=== PATIENT | male | born 1935 | race African-American/Black ===

== ENCOUNTER 2018-09-18 14:19 | Inpatient (IN) | payer MEDICARE ==
[~2018-09-18] VITALS: Ht 172.7 cm; Wt 39.9 kg
[2018-09-18] VITALS (10 sets, daily range): BP systolic 96–131; BP diastolic 51–76
[2018-09-18] MEDS ORDERED: ONDANSETRON HCL 4MG/2ML INJ IV STA (14:53)
[2018-09-18] MEDS ORDERED: SODIUM CHLORIDE 0.9% 500 ML IV ONE (14:53)
[2018-09-18] MEDS ORDERED: DEXAMETHASONE 10 MG/ML VIAL IV ONE (15:45)
[2018-09-18] MEDS ORDERED: LEVETIRACETAM 500MG PREMIX 100 ML IV ONE (15:45)
[2018-09-18 16:28] LABS: CHLORIDE 108 mEq/L (98-107)
[2018-09-18 16:29] LABS: BASOPHILS % 0.2 % (0.0-2.0); EOSINOPHILS % 2.5 % (0.0-5.0); HEMATOCRIT. 23.7 % (42.0-52.0); HEMOGLOBIN. 7.6 g/dL (14.0-18.0); INR 1.1; LYMPHOCYTES % 7.2 % (20.0-50.0); MEAN CORPUSCULAR HEMOGLOBIN 28.9 pg (28.0-32.0); MEAN CORPUSCULAR VOLUME 90.5 fL (80.0-94.0); MEAN PLATELET VOLUME 8.6 fl (7.4-10.4); MONOCYTES % 10.8 % (2.0-8.0); NEUTROPHILS % 79.3 % (40.0-76.0); PLATELET 186 x1000/uL (130-400); PROTHROMBIN TIME 10.9 sec (9.1-11.1); RED BLOOD CELL COUNT 2.62 mill/uL (4.7-6.1); RED CELL DISTRIBUTION WIDTH 16.4 % (11.6-14.6)
[2018-09-18 16:39] LABS: CREATINE KINASE 45 IU/L (39-308)
[2018-09-18 16:41] LABS: CARBAMAZEPINE < 0.5 ug/mL (4-12); PHENOBARBITAL < 2.1 ug/mL (15.0-40.0)
[2018-09-18] MEDS ORDERED: PIPERACILLIN/TAZ 3.375G PREMIX 50 ML IV SCH (22:15)
[2018-09-18] MEDS ORDERED: ACETAMINOPHEN 650MG/20.3ML UDC PO PRN (22:15)
[2018-09-18] MEDS ORDERED: HYDROMORPHONE HCL/PF 2MG/ML CPJ IV PRN (22:15)
[2018-09-18] MEDS ORDERED: LEVETIRACETAM 500 MG in SODIUM CHLORIDE 0.9% 100 ML IV SCH (22:30)
[2018-09-18] MEDS ORDERED: SODIUM CHLORIDE 0.45% 1,000 ML IV SCH (23:00)
[2018-09-18] MEDS ORDERED: NICARDIPINE 100 MG in SODIUM CHLORIDE 0.9% 60 ML IV PRN (23:15)
[2018-09-18] MEDS: DEXT 5%/LACTATED RINGERS 1,000 ML IV SCH (23:28)
[2018-09-18] MEDS: PANTOPRAZOLE SODIUM 40 MG/VIAL IV SCH (23:28)
[2018-09-18] MEDS: DEXAMETHASONE 4MG/ML 1ML VIAL IV SCH (23:28)
[2018-09-19] VITALS (49 sets, daily range): BP systolic 91–146; BP diastolic 36–77
[2018-09-19] MEDS ORDERED: CLONIDINE HCL 0.2MG/24HR PATCH TD SCH
[2018-09-19] MEDS: PIPERACILLIN/TAZ 3.375G PREMIX 50 ML IV SCH ×3 (00:02→16:34)
[2018-09-19] MEDS: ALBUTEROL (0.083%) 2.5MG/3ML NEB HHN SCH ×2 (00:07→07:50)
[2018-09-19] MEDS ORDERED: LEVETIRACETAM 500 MG in SODIUM CHLORIDE 0.9% 100 ML IV SCH (06:00)
[2018-09-19] MEDS: DEXAMETHASONE 4MG/ML 1ML VIAL IV SCH ×3 (06:10→17:23)
[2018-09-19] MEDS: PANTOPRAZOLE SODIUM 40 MG/VIAL IV SCH (08:25)
[2018-09-19] MEDS: DEXT 5%/LACTATED RINGERS 1,000 ML IV SCH (17:23)
== END 2018-09-19 20:00 | disposition short-term general hospital (02) | DRG 54 ==
LOC: ER 15:01 → MICUNO 15:59 → EDBEDREQ 16:01 → EDBEDREQSVC 16:01 → EDBEDREQTM 16:01 → ENRESERV 19:06
PROVIDERS: ADMIT Ophthalmology; ATTEND Ophthalmology
DX: C79.31 Secondary malignant neoplasm of brain (principal); E41 Nutritional marasmus; C34.91 Malignant neoplasm of unspecified part of right bronchus or lung; R47.01 Aphasia; G93.49 Other encephalopathy; Z68.1 Body mass index [BMI] 19.9 or less, adult; D63.0 Anemia in neoplastic disease; J44.9 Chronic obstructive pulmonary disease, unspecified; I10 Essential (primary) hypertension; R62.7 Adult failure to thrive; Z51.5 Encounter for palliative care; Z87.891 Personal history of nicotine dependence
CPT/HCPCS: 36415; 70551; 70552; 71045; 80156; 80165; 80184; 80185; 82140; 82550; 83605; 83880; 84443; 84484; 93005; 93970; 96374; 96375; 99285; C9113; J1100; J1953; J2405; J2543; J7040; J7050; J7121; J7611